=== PATIENT | female | born 1965 | race American Indian/Alaskan Native ===

== ENCOUNTER 2020-04-26 08:24 | Outpatient (CLI) | payer OTHER ==
--- NOTE | 2020-04-26 09:57 | Mammography Report ---
DIGITAL SCREENING MAMMOGRAM WITH CAD, 04/26/2020 INDICATION: Routine screening mammography. TECHNIQUE: Digital bilateral 2D mammography was obtained in the craniocaudal and mediolateral obliq ue projections. This examination was interpreted with the benefit of Computer-Aided Detection analysi s. COMPARISON: 06/11/2018. FINDINGS: Breast Density: The breasts are heterogeneously dense, which may obscure small masses. Not seen previously is an asymmetry located in the upper right breast posteriorly along the pectoral muscle on the MLO view measuring 1.2 x 1.0 cm. No other significant abnormality of the right breast. There is a new ovoid mass with smooth margins in the upper outer quadrant posterior depth of the left breast measuring 1.7 x 1.5 cm. Bilateral benign calcifications are stable. IMPRESSION: New mass in the left breast as above. A left breast ultrasound is recommended for further evaluation. If there is no sonographic correlate, a diagnostic left mammogram with spot compression views is rec ommended. New asymmetry in the right breast as above. A diagnostic right mammogram with spot compression views is recommended. Follow up recommendation: Ultrasound Category 0: Incomplete. Needs additional imaging evaluation and/or prior mammograms for comparison. A "normal" or negative report should not discourage follow up or biopsy of a clinically significant f inding. A written summary of these findings will be mailed to the patient. The patient will be entered into a mammography reporting system which will generate a reminder letter for the patient's next appointmen t at the appropriate interval. The [employer] recommends yearly mammograms starting at age 40 and continuing as l keerthi as a woman is in good health. Breast MRI is recommended for women with an approximate 20-25% or greater lifetime risk of breast cancer, including women with a strong family history of breast or ova meliton cancer or who have been treated for Hodgkin's disease. Signer Name: Bala Casas MD Signed: 04/26/2020 9:53 AM Workstation Name: [id number]
== END 2020-04-26 08:25 | disposition home or self-care (01) ==
LOC: SPVWC 08:24
PROVIDERS: ATTEND Family Medicine
DX: Z12.31 Encounter for screening mammogram for malignant neoplasm of breast (principal)
CPT/HCPCS: 77067

== ENCOUNTER 2020-07-03 13:39 | Outpatient (CLI) | payer OTHER ==
--- NOTE | 2020-07-03 16:43 | Ultrasound Report ---
RIGHT DIGITAL DIAGNOSTIC MAMMOGRAM WITH CAD CONVENTIONAL, 07/03/2020 BILATERAL LIMITED BREAST ULTRASOUND CLINICAL INFORMATION / INDICATION: ABNORMAL MAMMO ADDI BREASTS TECHNIQUE: Digital right mammographic imaging was performed. Spot compression views were obtained. Li mited ultrasound was performed. This examination was interpreted with the benefit of Computer-Aided D etection (CAD) analysis. COMPARISON: 05/11/2018 and 04/26/2020. FINDINGS: Breast Density: The breasts are heterogeneously dense, which may obscure small masses. MAMMOGRAPHIC FINDINGS: There is mild nodularity in the right superior breast posteriorly on the MLO v iew which is probably unchanged since the 2018 exam. No other abnormality is seen. ULTRASOUND FINDINGS: Targeted ultrasound evaluation was performed of the area of interest. RIGHT: There are 3 small mildly complicated cyst at the 10:00 through 10:30 positions, the largest of which measures approximately 8.6 mm and contains a couple of benign calcifications in its dependent portion. Additionally, there is a focal area of posterior shadowing at the 11:30 position 3 cm from t he nipple. There is a small irregular hyperechoic solid abnormality just anterior to the posterior sh adowing, measuring approximately 8 mm.. No mammographic correlate is seen. LEFT: There is a 1.9 cm lobulated, mildly complex cyst at the 2:00 position 8 cm from the nipple at t he site of the mammographically detected nodule. A thin internal septation is present without solid n odular component. There is good through transmission. No internal vascularity is seen on Doppler exam . IMPRESSION: 1. 1.9 cm benign-appearing mildly complex cyst in the left superior breast corresponds to the site of the mammographically detected nodule. 2. Benign-appearing small complicated cysts in the right upper outer quadrant correspond to stable be nign-appearing nodularity. 3. Hyperechoic lesion with focal posterior shadowing in the right breast at the 11:30 position 3 cm f rom the nipple without a mammographic correlate. The findings are suspicious and biopsy is recommende d. Follow up recommendation: Surgical consult BI-RADS Category 4: Suspicious for Malignancy. A "normal" or negative report should not discourage follow up or biopsy of a clinically significant f inding. A written summary of these findings will be mailed to the patient. The patient will be entered into a mammography reporting system which will generate a reminder letter for the patient's next appointmen t at the appropriate interval. According to the [employer], yearly mammograms are recommended starting at age 40 and continuing as long as a woman is in good health. Breast MRI is recommended for women with an awilda roximately 20-25% or greater lifetime risk of breast cancer, including women with a strong family his tory of breast or ovarian cancer and women who have been treated for Hodgkin's disease. Signer Name: London Campos MD Signed: 07/03/2020 4:38 PM Workstation Name: [id number]
== END 2020-07-03 13:40 | disposition home or self-care (01) ==
LOC: SPVWC 13:39
PROVIDERS: ATTEND Family Medicine
DX: R92.8 Other abnormal and inconclusive findings on diagnostic imaging of breast (principal)

== ENCOUNTER 2020-08-01 10:02 | Outpatient (CLI) | payer OTHER ==
--- NOTE | 2020-08-01 11:24 | Mammography Report ---
DIGITAL DIAGNOSTIC MAMMOGRAM CONVENTIONAL, 08/01/2020 CLINICAL INFORMATION / INDICATION: Status post ultrasound-guided right breast biopsy. TECHNIQUE: Digital right mammographic imaging was performed. COMPARISON: 07/03/2020 FINDINGS: Breast Density: The breasts are heterogeneously dense, which may obscure small masses. Concordant clip placement is seen in the 11-12:00 position anterior depth of the right breast at the site of the previously described suspicious sonographic lesion. No other significant abnormality. IMPRESSION: Concordant right breast biopsy clip placement. Please see the pathology report for furthe r details. Follow up recommendation: Clinical exam Post biopsy imaging. A "normal" or negative report should not discourage follow up or biopsy of a clinically significant f inding. A written summary of these findings will be mailed to the patient. The patient will be entered into a mammography reporting system which will generate a reminder letter for the patient's next appointmen t at the appropriate interval. According to the [employer], yearly mammograms are recommended starting at age 40 and continuing as long as a woman is in good health. Breast MRI is recommended for women with an awilda roximately 20-25% or greater lifetime risk of breast cancer, including women with a strong family his tory of breast or ovarian cancer and women who have been treated for Hodgkin's disease. Signer Name: Bala Casas MD Signed: 08/01/2020 11:20 AM Workstation Name: [id number]
--- NOTE | 2020-08-01 11:39 | Ultrasound Report ---
ULTRASOUND GUIDED RIGHT BREAST BIOPSY, 08/01/2020 CLINICAL INFORMATION / INDICATION: Suspicious shadowing right breast mass seen on prior breast ultras ound. COMPARISON: 07/03/2020 PROCEDURE: Risks, benefits, and indications to the procedure were discussed with the patient in detail, includin g bleeding, infection, hematoma formation, and inadequate tissue sampling. The patient agreed to proc eed with both verbal and written consent. A timeout procedure was performed with two patient identifi ers. The breast was prepped and draped in the usual sterile fashion. Lidocaine 1% with and without epineph rine were used for local anesthesia. Under direct ultrasound guidance, multiple core samples were obt ained of the shadowing 11-12:00 right breast mass. A biopsy marker was then placed. Biopsy device wa s removed and hemostasis achieved with manual pressure. A sterile dressing was applied to the skin. The patient tolerated the procedure without difficulty. No complications were encountered. Postbiopsy instructions were discussed with the patient and given in writing. Specimens were sent to pathology. IMPRESSION: 1. Technically successful ultrasound guided right breast biopsy. Biopsy results are pending and will be reported in an addendum. Signer Name: Bala Casas MD Signed: 08/01/2020 11:34 AM Workstation Name: [id number]
== END 2020-08-01 10:03 | disposition home or self-care (01) ==
LOC: SPVWC 10:02
PROVIDERS: ATTEND Family Medicine
DX: N63.11 Unspecified lump in the right breast, upper outer quadrant (principal); R92.8 Other abnormal and inconclusive findings on diagnostic imaging of breast; N64.89 Other specified disorders of breast
CPT/HCPCS: 88305

== ENCOUNTER 2021-09-17 11:06 | Outpatient (CLI) | payer OTHER ==
--- NOTE | 2021-09-18 11:47 | Mammography Report ---
DIGITAL SCREENING MAMMOGRAM WITH CAD, 09/17/2021 CLINICAL INFORMATION / INDICATION: Routine screening mammography. SCREENING MAMMO Z12.31 TECHNIQUE: Digital bilateral 2D mammography was obtained in the craniocaudal and mediolateral obliqu e projections. This examination was interpreted with the benefit of Computer-Aided Detection analysis . COMPARISON: 04/26/2020 and 06/11/2018 FINDINGS: Breast Density: The breasts are heterogeneously dense, which may obscure small masses. No dominant mass, suspicious calcifications, or architectural distortion in either breast. Biopsy clip noted in the right breast. Largely unchanged nodular densities in the breasts, commonly f ibroglandular or fibrocystic change. IMPRESSION: No mammographic evidence of malignancy. Follow up recommendation: Routine yearly BI-RADS Category 2: BENIGN. A "normal" or negative report should not discourage follow up or biopsy of a clinically significant f inding. A written summary of these findings will be mailed to the patient. The patient will be entered into a mammography reporting system which will generate a reminder letter for the patient's next appointmen t at the appropriate interval. The [employer] recommends yearly mammograms starting at age 40 and continuing as l keerthi as a woman is in good health. Breast MRI is recommended for women with an approximate 20-25% or greater lifetime risk of breast cancer, including women with a strong family history of breast or ova meliton cancer or who have been treated for Hodgkin's disease. Signer Name: Roderick Fountain MD Signed: 09/18/2021 10:30 AM Workstation Name: [id number]
== END 2021-09-17 11:07 | disposition home or self-care (01) ==
LOC: SPVWC 11:06
PROVIDERS: ATTEND Family Medicine
DX: Z12.31 Encounter for screening mammogram for malignant neoplasm of breast (principal); N64.89 Other specified disorders of breast
CPT/HCPCS: 77067